=== PATIENT | male | born 1985 | race Caucasian/White ===

== ENCOUNTER 2022-05-03 13:54 | Outpatient (CLI) | payer OTHER | END 2022-05-03 23:59 | disposition critical access hospital (66) | LOC: EMS 13:54 | DX: S69.92XA Unspecified injury of left wrist, hand and finger(s), initial encounter (principal); W20.8XXA Other cause of strike by thrown, projected or falling object, initial encounter; Y93.89 Activity, other specified; Y92.512 Supermarket, store or market as the place of occurrence of the external cause; Y99.0 Civilian activity done for income or pay ==

== ENCOUNTER 2022-05-03 14:17 | Emergency (ER) | payer OTHER ==
[2022-05-03] MEDS ORDERED: oxyCODONE 5 MG TABLET PO STA (14:21)
--- NOTE | 2022-05-03 14:21 | ED Physician Documentation ---
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 Did not really hurt at the time and he was working for about an hour and then twisted his wrist and developed severe wrist pain. No other injuries.) Review of Systems Constitutional: denies: Fever, Chills Throat: reports: Reviewed and negative Cardiac: reports: Reviewed and negative Respiratory: reports: Reviewed and negative PD PAST MEDICAL HISTORY - Allergies Allergies/Adverse Reactions: Allergies Allergy/AdvReac Type Severity Reaction Status Date / Time No Known Drug Allergies Allergy Verified 05/03/22 14:37 PD ED PE NORMAL - Vitals Vital signs reviewed: Yes - General General: Alert and oriented X 3, Other (He appears to be in at least moderate pain) - Extremities Extremities: Other (Tender over the dorsal wrist without deformity. Limited range of motion of the left wrist due to pain. Normal neurovascular function in the hand.) - Neuro Neuro: Alert and oriented X 3, Normal speech Eye Opening: Spontaneous Motor: Obeys Commands Verbal: Oriented GCS Score: 15 - Psych Psych: Normal mood, Normal affect Results - Vitals Vitals: Vital Signs - 24 hr 05/03/22 14:37 Temperature 36.7 C Heart Rate 67 Respiratory 19 Rate Blood Pressure 124/73 O2 Saturation 100 Oxygen O2 Source Room air - Rads (name of study) 4 view x-ray of the left wrist is negative. Radiology: EMP read contemporaneously PD MEDICAL DECISION MAKING - ED course ED course: 36-year-old right-handed gentleman injured the left wrist at work. Something dropped on it and it really was not painful initially, but became more painful later in the day with use. There is no deformity, x-rays are negative for fracture. He is placed in a Velcro splint here for comfort and advised on RICE. Departure - Departure Disposition: 01 Home, Self Care Clinical Impression: Left wrist sprain Condition: Good Record reviewed to determine appropriate education?: Yes Instructions: ED Sprain Wrist Comments: There is no evidence of fracture in your left wrist or metacarpal bones where you have pain. Follow-up with your primary care physician in a week if not better, return for new or worsening symptoms. Tylenol and/or ibuprofen as needed for pain. Forms: Activity restrictions Discharge Date/Time: 05/03/22 15:31
[2022-05-03 14:38] VITALS: BP 124/73
--- NOTE | 2022-05-03 14:50 | XRAY Report ---
PROCEDURE: Wrist 4 View LT INDICATIONS: wrist pain TECHNIQUE: 4 views of the wrist were acquired. COMPARISON: None FINDINGS: Bones: No acute fractures or dislocations. No suspicious bony lesions. Scaphoid view: Scapholunate interval is maintained. Scaphoid appears intact. Soft tissues: No suspicious soft tissue calcifications. IMPRESSION: Left wrist without acute fracture or dislocation. If there is persistent clinical concern for a radiographically occult fracture, recommend immobilizat ion and repeat imaging in 10 to 14 days. Reviewed by: Eric Jackson MD on 05/03/2022 2:49 PM PST Approved by: Eric Jackson MD on 05/03/2022 2:49 PM PST Station ID: [id number]
[2022-05-03] MEDS ORDERED: IBUPROFEN 600 MG TABLET PO STA (15:06)
== END 2022-05-03 15:31 | disposition home or self-care (01) ==
LOC: ED 14:17
DX: S63.502A Unspecified sprain of left wrist, initial encounter (principal); W20.8XXA Other cause of strike by thrown, projected or falling object, initial encounter; Y93.89 Activity, other specified; Y92.512 Supermarket, store or market as the place of occurrence of the external cause; Y99.0 Civilian activity done for income or pay
CPT/HCPCS: 73110; 99282; 99283; A9270; 1040M

== ENCOUNTER 2022-11-29 08:00 | Outpatient (CLI) | payer MEDICAID, OTHER | END 2022-11-29 23:59 | disposition home or self-care (01) | LOC: LAB.N 08:00 | PROVIDERS: ATTEND Nurse Practitioner | DX: L02.91 Cutaneous abscess, unspecified (principal) | CPT/HCPCS: 87070; 87181; 87205 ==

== ENCOUNTER 2023-03-04 21:44 | Outpatient (CLI) | payer MEDICAID | END 2023-03-04 23:59 | disposition critical access hospital (66) | LOC: EMS 21:44 | DX: R10.30 Lower abdominal pain, unspecified (principal); R11.10 Vomiting, unspecified; K59.00 Constipation, unspecified | CPT/HCPCS: A0425; A0429; A0999 ==

== ENCOUNTER 2023-03-04 22:00 | Emergency (ER) | payer MEDICAID ==
[2023-03-04] MEDS ORDERED: HYDROmorphone 1 MG/ML CARPUJECT IVP STA (22:21)
[2023-03-04] MEDS ORDERED: DROPERIDOL 5 MG/2 ML VIAL IVP STA (22:21)
--- NOTE | 2023-03-04 22:23 | ED Physician Documentation ---
PD HPI ABD PAIN - Stated complaint Stated Complaint: ABD PX - Chief complaint Chief Complaint: Abd Pain - History obtained from History obtained from: Patient - Additional information Additional information: 37-year-old gentleman presents by ambulance for the evaluation of abdominal pain. Started this evening at 7 PM. He had diarrhea yesterday and does not remember if he has had a bowel movement today. He has never had pain like this before. He feels like heat will help it and would like something warm on his abdomen or perhaps a hot shower. He uses methamphetamine and marijuana daily. PD PAST MEDICAL HISTORY - Present Medications Home Medications: Ambulatory Orders Medication Instructions Recorded Confirmed No Known Home Medications 03/04/23 03/04/23 - Allergies Allergies/Adverse Reactions: Allergies Allergy/AdvReac Type Severity Reaction Status Date / Time No Known Drug Allergies Allergy Verified 03/04/23 22:13 PD ED PE NORMAL - Vitals Vital signs reviewed: Yes - General General: Alert and oriented X 3, Other (Writhing in pain and asking for something warm on his abdomen.) - HEENT HEENT: Other (Poor dentition) - Cardiac Cardiac: RRR, No murmur - Respiratory Respiratory: No respiratory distress, Clear bilaterally - Abdomen Abdomen: Normal bowel sounds, Soft, Other (Tender in the low abdomen, left equal to right, no surgical signs.) - Neuro Neuro: Alert and oriented X 3, Normal speech Results - Vitals Vitals: Vital Signs - 24 hr 03/04/23 03/04/23 22:00 22:40 Temperature 36.7 C Heart Rate 79 74 Respiratory 20 16 Rate Blood Pressure 153/95 H 127/83 H O2 Saturation 99 98 Oxygen O2 Source Room air - Labs Labs: Laboratory Tests 03/04/23 03/04/23 22:18 22:18 WBC 10.5 RBC 4.52 L Hgb 13.8 L Hct 41.7 L MCV 92.3 MCH 30.5 MCHC 33.1 RDW 12.9 Plt Count 312 MPV 9.4 Neut # (Auto) 7.5 H Lymph # (Auto) 1.6 [place] # (Auto) 1.0 Eos # (Auto) 0.3 Baso # (Auto) 0.0 Absolute Nucleated RBC 0.00 Nucleated RBC % 0.0 Sodium 137 Potassium 4.0 Chloride 100 L Carbon Dioxide 28 Anion Gap 9.0 BUN 19 Creatinine 0.9 Estimated GFR (MDRD) 96 Glucose 117 H Calcium 9.0 Total Bilirubin 0.5 AST 43 H ALT 54 Alkaline Phosphatase 77 Total Protein 7.7 Albumin 4.3 Globulin 3.4 Albumin/Globulin Ratio 1.3 Lipase 34 PD Medical Decision Making - ED course Complexity details: reviewed results (CBC showing mild normocytic anemia. CMP relatively unremarkable.) ED course: 37-year-old gentleman presents with acute abdominal pain. Given that he is yelling for something from warm to be put on his abdomen 1 must wonder if this is cannabinoid hyperemesis. That said the differential is broad and includes other causes of intra-abdominal emergencies and will obtain a CT. Care to overnight emergency physician at 11 PM shift change pending CT scanning. Departure - Departure Clinical Impression: Abdominal pain Condition: Stable Record reviewed to determine appropriate education?: Yes Instructions: ED Abdominal Pain Unkn Cause Male Forms: PCP List
[2023-03-04 22:30] LABS: BASOPHILS % (AUTO) 0.4 %; EOSINOPHILS # (AUTO) 0.3 10^3/uL (0.0-0.7); EOSINOPHILS % (AUTO) 2.7 %; HCT - HEMATOCRIT 41.7 % (42.0-52.0); HGB - HEMOGLOBIN 13.8 g/dL (14.0-18.0); LYMPHOCYTES # (AUTO) 1.6 10^3/uL (1.5-3.5); LYMPHOCYTES % (AUTO) 14.8 %; MEAN CORPUSCULAR HEMOGLOBIN 30.5 pg (27.0-31.0); MEAN CORPUSCULAR HGB CONC 33.1 g/dL (32.0-36.0); MEAN CORPUSCULAR VOLUME 92.3 fL (80.0-94.0); MEAN PLATELET VOLUME 9.4 fL (7.4-11.4); MONOCYTES % (AUTO) 9.6 %; NEUTROPHILS # (AUTO) 7.5 10^3/uL (1.5-6.6); NEUTROPHILS % (AUTO) 71.6 %; PLT - PLATELET COUNT 312 10^3/uL (130-450); RED BLOOD COUNT 4.52 10^6/uL (4.70-6.10); RED CELL DISTRIBUTION WIDTH 12.9 % (12.0-15.0); WHITE BLOOD COUNT 10.5 x10^3/uL (4.8-10.8)
[2023-03-04 22:43] LABS: ALBUMIN 4.3 g/dL (3.2-5.5); ALBUMIN/GLOBULIN RATIO 1.3 (1.0-2.2); BILIRUBIN,TOTAL 0.5 mg/dL (0.2-1.0); CREATININE 0.9 mg/dL (0.6-1.2); TOTAL PROTEIN 7.7 g/dL (6.7-8.2)
[2023-03-05] MEDS ORDERED: IOVERSOL 320 100 ML VIAL IVP ONE (00:26)
--- NOTE | 2023-03-05 01:08 | CT Report ---
PROCEDURE: ABDOMEN/PELVIS W INDICATIONS: low abd pain CONTRAST: 100mL Opti 320 TECHNIQUE: After the administration of intravenous contrast, 5 mm thick sections acquired from the diaphragms to the symphysis. 5 mm thick coronal and sagittal reformats were acquired. For radiation dose reducti on, the following was used: automated exposure control, adjustment of mA and/or kV according to dayanna ent size. COMPARISON: None. FINDINGS: Image quality: Diagnostic Lung bases: Unremarkable. Heart: Heart is normal in size. ABDOMEN: Liver: No mass lesion. Gallbladder: Within normal limits without calcified gallstones. Biliary ducts: No biliary ductal dilatation. Pancreas: Unremarkable. Spleen: Normal in size. Adrenal Glands: No adrenal nodules. Kidneys and Ureters: No hydronephrosis. Stomach and Bowel: Stomach, small bowel loops, and colon are normal in caliber and wall thickness. T here are scattered fluid levels throughout the small bowel without abnormal dilatation or a focal tra nsition point suggestive of a gastroenteritis. The appendix is not discretely visualized but there ar e no pericecal inflammatory changes to suggest appendicitis. Peritoneum: No abnormal intraperitoneal fluid. No free air. Ventral Wall: No hernia. Abdominal Nodes: No retroperitoneal or mesenteric adenopathy by size criteria. Vessels: Aorta and inferior vena cava are normal in size. PELVIS: Pelvic Organs: Unremarkable. Bladder: Unremarkable. Pelvic Nodes: No enlarged lymph nodes. Miscellaneous: No inguinal hernias. Bones: Visualized osseous structures demonstrate no suspicious lesions. IMPRESSION: 1. Air-fluid levels throughout the small bowel without abnormal dilatation or focal transition point likely represent a gastroenteritis. A small bowel obstruction is less likely. Reviewed by: Rahul Dorado MD on 03/05/2023 1:07 AM PDT Approved by: Rahul Dorado MD on 03/05/2023 1:07 AM PDT Station ID: [id number]
[2023-03-05] MEDS ORDERED: HYDROmorphone 1 MG/ML CARPUJECT IVP STA (01:18)
[2023-03-05] MEDS ORDERED: LORazepam 2 MG/ML VIAL IVP STA (01:18)
--- NOTE | 2023-03-05 01:22 | ED Physician Documentation ---
ED Addendum - Addendum Addendum: 03/05/23 01:19 Patient endorsed to me by Dr. Lopez at 11 PM shift change. Briefly, patient Is a 37-year-old man with history of methamphetamine and marijuana use, homelessness, presents nausea, diarrhea yesterday and request for hot shower or heating pads on abdomen. He had significant improvement with Inapsine and IV Dilaudid but now is asking for more pain medication. CT abdomen and pelvis uncovered Some air-fluid levels symptomatic of possible gastroenteritis, SBO less likely with no transition point. Patient passing gas and having diarrhea so not obstructed. labs including cbc, abdominal panel without acute abnormalities. Administered additional 1mg IV dilaudid, 1mg IV ativan given likely cannabis hyperemesis syndrome vs viral gastroenteritis. 03/05/23 03:56 Patient in NAD, sleeping comfortably after the ativan and 2nd dose of dilaudid. Will continue to monitor. 03/06/23 07:21 Patient with pain well controlled overnight. discharged home to f/u with pcp. Return precautions given. Disposition home Condition stable Impression 1. nausea 2. diarrhea 3. abdominal pain 4. polysubstance abuse
[2023-03-05 05:19] VITALS: BP 117/74; O2SAT 96
== END 2023-03-05 05:37 | disposition home or self-care (01) ==
LOC: EDUNIT# → ED 22:00
DX: R10.9 Unspecified abdominal pain (principal); F19.10 Other psychoactive substance abuse, uncomplicated
CPT/HCPCS: 36415; 74177; 80053; 83690; 85025; 96374; 96375; 99284; J1170; J2060; Q9967